=== PATIENT | female | born 1975 | race Hispanic/Latino ===

== ENCOUNTER 2017-10-31 07:46 | Day surgery (SDC) | payer MEDICAID ==
[~2017-10-31] VITALS: Ht 162.6 cm; Wt 100.7 kg
[~2017-10-31 07:46] MED LIST: CETI10TA57 PO; LISI10TA7 PO; METF500T6 PO; SODIUM CHLORIDE 0.9% 1000ML 1,000 ML IV ONE
[2017-10-31 09:24] VITALS: BP 120/66
[2017-10-31] MEDS ORDERED: PROPOFOL 10 MG/ML 20ML VIAL IV ONE (10:15)
[2017-10-31 12:15] VITALS: BP 115/65
== END 2017-10-31 11:31 | disposition home or self-care (01) ==
LOC: DAH 07:46
PROVIDERS: ATTEND Internal Medicine
DX: K29.50 Unspecified chronic gastritis without bleeding (principal); B96.81 Helicobacter pylori [H. pylori] as the cause of diseases classified elsewhere; K21.0 Gastro-esophageal reflux disease with esophagitis; L53.8 Other specified erythematous conditions; K25.9 Gastric ulcer, unspecified as acute or chronic, without hemorrhage or perforation; E11.9 Type 2 diabetes mellitus without complications; E66.01 Morbid (severe) obesity due to excess calories; G47.33 Obstructive sleep apnea (adult) (pediatric); Z68.35 Body mass index [BMI] 35.0-35.9, adult; Z90.49 Acquired absence of other specified parts of digestive tract; Z80.0 Family history of malignant neoplasm of digestive organs; Z79.899 Other long term (current) drug therapy; Z79.84 Long term (current) use of oral hypoglycemic drugs
CPT/HCPCS: 43239; 82948 ×2; 88305; 88312; 88342; A4606; J2704; J7030

== ENCOUNTER 2018-06-28 21:43 | Emergency (ER) | payer MEDICAID ==
[~2018-06-28 21:43] MED LIST changes: +METF-444 PO; -METF500T6 PO; -SODIUM CHLORIDE 0.9% 1000ML 1,000 ML IV ONE
[2018-06-28 22:13] LABS: APPEARANCE,URINE Clear (CLEAR); BILIRUBIN,URINE Negative (NEGATIVE); COLOR,URINE Yellow (YELLOW); GLUCOSE, URINE (UA) >=1000 mg/dL (NEGATIVE); KETONES,URINE Negative (NEGATIVE); LEUKOCYTE ESTERASE ,URINE Moderate (NEGATIVE); NITRATE,URINE Negative (NEGATIVE); OCCULT BLOOD,URINE Nonhemolyzed Trace (NEGATIVE); PH,URINE 6.5 (5.0-8.0); PROTEIN,URINE Negative (NEGATIVE)
[2018-06-28 22:41] LABS: BASOPHILS % (AUTO) 1.2 % (0.0-5.0); EOSINOPHILS % (AUTO) 2.7 % (0.0-8.0); HEMATOCRIT 43.2 % (36-48); LYMPHOCYTES % (AUTO) 38.8 % (21.0-51.0); MEAN CORPUSCULAR HEMOGLOBIN 29.3 pg (27.0-33.0); MEAN CORPUSCULAR VOLUME 88.6 fL (79-99); MONOCYTES % (AUTO) 7.2 % (3.0-13.0); NEUTROPHILS % (AUTO) 50.1 % (40.0-77.0); PLATELET COUNT (AUTO) 260 K/uL (130-400); RED BLOOD CELL COUNT(AUTO) 4.88 MIL/uL (4.00-5.50); RED CELL DISTRIBUTION WIDTH 14.5 % (11.0-15.5); WHITE BLOOD COUNT (AUTO) 11.2 K/uL (4.8-10.8)
[2018-06-28 22:44] LABS: BACTERIA,URINE Few /HPF (None Seen); SQUAMOUS EPITHELIAL CELL,UR Few /HPF (0-2); YEAST,URINE BUDDING None Seen /HPF (None Seen)
[2018-06-28 23:25] LABS: CREATININE 0.9 mg/dL (0.5-1.5); POTASSIUM 3.4 mmol/L (3.5-5.1)
[2018-06-28 23:30] LABS: ALBUMIN 2.7 g/dL (3.5-5.0); BILIRUBIN,TOTAL 0.3 mg/dL (0.2-1.0); TOTAL PROTEIN, SERUM 7.8 g/dL (6.0-8.3)
== END 2018-06-28 23:53 | disposition home or self-care (01) ==
LOC: EDH 21:43
DX: E11.65 Type 2 diabetes mellitus with hyperglycemia (principal); I10 Essential (primary) hypertension
CPT/HCPCS: 36415; 80053; 81001; 81025; 82009; 82948; 83690; 84484; 85025; 93005; 96360

== ENCOUNTER → 2018-09-30 | Outpatient (CLI) | payer MEDICAID | END | disposition home or self-care (01) | LOC: RAH 08:33 | PROVIDERS: ATTEND Family Medicine | DX: Z12.31 Encounter for screening mammogram for malignant neoplasm of breast (principal) | CPT/HCPCS: 77067 ==

== ENCOUNTER 2020-01-24 22:26 | Emergency (ER) | payer MEDICAID ==
[2020-01-24] MEDS ORDERED: LIDOCAINE HCL 2% VISCOUS 15 ML UDCUP ONE (23:17)
[2020-01-24] MEDS ORDERED: HYOSCYAMINE SULFATE 0.125 MG TAB.SUBL SL ONE (23:17)
[2020-01-24] MEDS ORDERED: MAG HYDROX/AL HYDROX/SIMETH ES 30 ML SUSP UDCUP ONE (23:17)
[2020-01-24] MEDS ORDERED: KETOROLAC TROMETHAMINE 30MG/ML ONE (23:59)
[2020-01-25] MEDS ORDERED: FAMOTIDINE/PF 20 MG/2 ML VIAL IV ONE
[2020-01-25] MEDS ORDERED: SODIUM CHLORIDE 0.9% 500 ML IV ONE (00:01)
== END 2020-01-25 01:17 | disposition home or self-care (01) ==
LOC: EDH 22:26
DX: R19.7 Diarrhea, unspecified (principal); E11.9 Type 2 diabetes mellitus without complications; I10 Essential (primary) hypertension
CPT/HCPCS: 36415; 80053; 81001; 81025; 82550; 83690; 84484; 85025; 87077; 87088; 87186; 93005; 96361; 96374; 96375; 99284; J1885; J3490; J7050

== ENCOUNTER → 2020-04-13 | Outpatient (CLI) | payer MEDICAID | END | disposition home or self-care (01) | LOC: RAH 11:04 | PROVIDERS: ATTEND Family Medicine | DX: R22.1 Localized swelling, mass and lump, neck (principal); R13.19 Other dysphagia | CPT/HCPCS: 76536 ==

== ENCOUNTER → 2024-01-22 | Outpatient (CLI) | payer MEDICAID ==
[~2024-01-22] MED LIST changes: +LISI10TA24 PO; -LISI10TA7 PO
== END | disposition home or self-care (01) ==
LOC: RAH 11:30
PROVIDERS: ATTEND Obstetrics & Gynecology
DX: Z12.31 Encounter for screening mammogram for malignant neoplasm of breast (principal)
CPT/HCPCS: 77067